=== PATIENT | female | born 1960 | race Caucasian/White ===

== ENCOUNTER 2017-08-12 17:10 | Emergency (ER) | payer BC ==
[2017-08-12] MEDS ORDERED: oxyCODONE/Acetamin 5/325 MG* TAB PO ONE (17:46)
--- NOTE | 2017-08-12 17:47 | ED ---
Upper Extremity Pain - HPI Summary HPI Summary: 57F presents with bilateral wrist injury today. She was walking with his son and hand when she tripped and fell on her bilateral wrists. There is deformity to right wrist. She denies any numbness or tingling. She denies any previous fracture to the area. She also states she has minimal pain to her left wrist but has full range of motion.. She denies any elbow pain. She denies any other injury. She is right-handed. 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 She has a history of high blood pressure. She denies any chest pain shortness breath or headache. - History of Current Complaint Chief Complaint: EDExtremityUpper Stated Complaint: FALL/WRIST INJURY Time Seen by Provider: 08/12/17 17:37 - Allergies/Home Medications Allergies/Adverse Reactions: Allergies Allergy/AdvReac Type Severity Reaction Status Date / Time No Known Allergies Allergy Verified 08/12/17 17:56 Home Medications: Home Medications Aspirin EC TAB* [Ecotrin EC Low Dose 81 MG*] 81 mg PO DAILY 08/12/17 [History Confirmed 08/12/17] Cyanocobalamin TAB* [Vitamin B12 TAB*] 500 mcg PO DAILY 08/12/17 [History Confirmed 08/12/17] Multivitamins/Minerals TAB* [Theragran/minerals TAB*] 1 tab PO DAILY 08/12/17 [ History Confirmed 08/12/17] [place]-3 Fatty Acids (Nf) [Fish Oil (NF)] 1,000 mg PO DAILY 08/12/17 [History Confirmed 08/12/17] Valsartan/HCTZ 320/12.5(NF) [Diovan Hct 320/12.5(NF)] 1 tab PO DAILY 08/12/17 [ History Confirmed 08/12/17] amLODIPine TAB* [Norvasc 5 mg TAB*] 10 mg PO DAILY 08/12/17 [History Confirmed 08/12/17] hydrALAZINE TAB* [Apresoline TAB*] 10 mg PO BID 08/12/17 [History Confirmed 11/21] PMH/Surg Hx/FS Hx/Imm Hx Endocrine/Hematology History: Denies: Hx Anticoagulant Therapy Cardiovascular History: Reports: Hx Hypertension Infectious Disease History: No Infectious Disease History: Denies: Traveled Outside the [place] in Last 30 Days - Family History Known Family History: Positive: Hypertension - Social History Alcohol Use: Occasionally Substance Use Type: Reports: None Smoking Status (MU): Light Every Day Tobacco Smoker Review of Systems Negative: Fever Negative: Chest Pain Negative: Shortness Of Breath Positive: Myalgia - bilateral wrist pain All Other Systems Reviewed And Are Negative: Yes Physical Exam Triage Information Reviewed: Yes Vital Signs On Initial Exam: Initial Vitals Temp Pulse Resp BP Pulse Ox 99.0 F 119 20 211/77 98 08/12/17 17:18 08/12/17 17:18 08/12/17 17:18 08/12/17 17:18 08/12/17 17:18 Vital Signs Reviewed: Yes Appearance: Positive: Well-Appearing Skin: Positive: Warm, Dry Head/Face: Positive: Normal Head/Face Inspection Eyes: Positive: Normal, Conjunctiva Clear Respiratory/Lung Sounds: Positive: Clear to Auscultation, Breath Sounds Present Cardiovascular: Positive: Normal, RRR Musculoskeletal: Positive: Limited @ - right wrist, Other - good pulses, capillary refill<2 secs, deformity to right wrist, tenderness to left wrist with no deformity and full ROM Neurological: Positive: Normal Psychiatric: Positive: Normal Procedures - Splinting Left Location: left wrist Hand-Made Type: orthoglass Splint: sugar-tong Pre-Proc Neuro Vasc Exam: normal Post-Proc Neuro Vasc Exam: normal right wrist Location: right wrist Hand-Made Type: orthoglass Splint: sugar-tong Pre-Proc Neuro Vasc Exam: normal Post-Proc Neuro Vasc Exam: normal - Joint Reduction Right Joint Reduction Site: wrist (R) Conscious Sedation: No Reduction Attempts: 1 - finger traps and manual reduction attempted Pre-Procedure NV Exam: Yes Post Joint Reduction Film: joint not reduced - improved a little Diagnostics - Vital Signs Vital Signs Temp Pulse Resp BP Pulse Ox 08/12/17 17:18 99.0 F 119 20 211/77 98 - Laboratory Lab Statement: Any lab studies that have been ordered have been reviewed, and results considered in the medical decision making process. - Radiology right wrist Xray Interpretation: Positive (See Comments) - IMPRESSION: Distal radius and ulnar fractures. Radiology Interpretation Completed By: Radiologist left wrist Xray Interpretation: Positive (See Comments) - radius fracture Radiology Interpretation Completed By: Radiologist - EKG No standard instances EKG Rhythm: Sinus Tachycardia ST Segment: Normal EKG Interpretation: sinus tachycardia Course/Dx - Course Course Of Treatment: 57F presents with bilateral wrist injury today. She was walking with his son and hand when she tripped and fell on her bilateral wrists. There is deformity to right wrist. She denies any numbness or tingling. She denies any previous fracture to the area. She also states she has minimal pain to her left wrist but has full range of motion.. She denies any elbow pain. She denies any other injury. She is right-handed. 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 She has a history of high blood pressure. She denies any chest pain shortness breath or headache. Initial presentation patient was tachycardic and had a high blood pressure. EKG was performed and shows sinus tachycardia. In the course the ED patient's blood pressure came down was likely due to pain. On exam has deformity noted to right wrist. Neurovascular intact on both wrists. Has full range of motion of left versus pain. X-ray shows displaced fracture of right radius. Spoke with Dr. Mcleod and states patient will likely need surgery. Place in finger traps and attempted manual reduction after hematoma block and only minimal reduction occurred. X-ray of left radius shows a nondisplaced fracture. Placed both wrists in splint. Will follow-up with orthopedic. Told to samaria luna. Patient understands the plan. - Diagnoses Differential Diagnosis/HQI/PQRI: Positive: Fracture (Closed), Strain, Sprain Provider Diagnoses: Wrist fracture, bilateral, Hypertension Discharge - Sign-Out/Discharge Documenting (check all that apply): Discharge/Admit/Transfer - Discharge Plan Condition: Good Disposition: HOME Prescriptions: oxyCODONE/Acetamin 5/325 MG* [Percocet 5/325 TAB*] 1 tab PO Q6H PRN #16 tab MDD 4 PRN Reason: Pain Patient Education Materials: Wrist Fracture in Adults (ED) Forms: *Work Release Referrals: Galen HULL,Cassi Infante [Primary Care Provider] - Abraham Mcleod MD [Medical Doctor] - Additional Instructions: Call office Monday to follow up Monday or mon this week Keep elbow in sling as needed Keep splint on area and keep dry Use ibuprofen for pain every 6 hours and use narcotic for breakthrough pain every 6 hours Ice, elevate Return to ED if develop any new or worsening symptoms - Billing Disposition and Condition Condition: GOOD Disposition: Home
[2017-08-12] MEDS ORDERED: Bupivacaine 0.25% SDV* 30 ML INJ ONE (18:11)
--- NOTE | 2017-08-12 18:52 | RAD ---
Indication: Visible deformity, pain, decreased range of motion post fall on outstretched RIGHT hand. Comparison: No relevant prior exams available on the [facility] [place] for comparison. Technique: AP and lateral views RIGHT radius and ulna. AP, lateral, and oblique views RIGHT wrist. Report: Bone density appears decreased. Comminuted impacted fracture involving the distal metaphysis through articular surface of the distal radius with one bone width volar displacement. Associated grossly nondisplaced ulnar styloid avulsion. Negative for additional more proximal fracture of the radius or ulna. The carpus is displaced volar with the dominant distal radial articular fragment. Negative for dislocation. Associated soft tissue swelling most marked over the dorsal and ulnar aspects. 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 IMPRESSION: Distal radius and ulnar fractures.
--- NOTE | 2017-08-12 18:52 | RAD ---
Indication: Visible deformity, pain, decreased range of motion post fall on outstretched RIGHT hand. Comparison: No relevant prior exams available on the [facility] for comparison. Technique: AP and lateral views RIGHT radius and ulna. AP, lateral, and oblique views RIGHT wrist. Report: Bone density appears decreased. Comminuted impacted fracture involving the distal metaphysis through articular surface of the distal radius with one bone width volar displacement. Associated grossly nondisplaced ulnar styloid avulsion. Negative for additional more proximal fracture of the radius or ulna. The carpus is displaced volar with the dominant distal radial articular fragment. Negative for dislocation. Associated soft tissue swelling most marked over the dorsal and ulnar aspects. 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 IMPRESSION: Distal radius and ulnar fractures.
--- NOTE | 2017-08-12 19:29 | RAD ---
INDICATION: Pain post fall. Contralateral RIGHT distal radius and ulna fracture documented on radiographs of the same date. COMPARISON: No relevant prior exams available on the [facility] for comparison. TECHNIQUE: AP, lateral, and oblique views LEFT wrist. REPORT AND IMPRESSION: Mildly impacted fracture of the distal radius with intra-articular extension. Overlying soft tissue swelling. Negative for additional fracture within the [id number]. Normal articular alignment.
--- NOTE | 2017-08-12 20:16 | RAD ---
Indication: Post reduction RIGHT wrist fracture. Comparison: Prereduction exam of the same date. Technique: AP and lateral views RIGHT wrist. REPORT AND IMPRESSION: Cast/splint limits image quality. Mild interval decrease in magnitude of volar displacement of the dominant distal radial fracture fragment compared with the prereduction exam. Only minimal displacement of the ulnar styloid avulsion fracture without change.
[2017-08-12 21:14] VITALS: BP 145/71
== END 2017-08-12 21:12 | disposition home or self-care (01) ==
LOC: ED 17:10
DX: S52.572A Other intraarticular fracture of lower end of left radius, initial encounter for closed fracture (principal); S52.511A Displaced fracture of right radial styloid process, initial encounter for closed fracture; W01.0XXA Fall on same level from slipping, tripping and stumbling without subsequent striking against object, initial encounter; Y92.9 Unspecified place or not applicable; I10 Essential (primary) hypertension; F17.200 Nicotine dependence, unspecified, uncomplicated
CPT/HCPCS: 93005; 99283; A9270-GY